=== PATIENT | female | born 2000 | race Caucasian/White ===

== ENCOUNTER 2023-07-15 09:51 | Outpatient (CLI) | payer BC, SELFPAY ==
[2023-07-15 11:07] LABS: HIV 1/2 Ab P24 Ag Result Negative (Negative)
[2023-07-15 11:51] LABS: Hepatitis B Surface Antigen Negative (Negative)
[2023-07-15 12:01] LABS: Hepatitis B Core IgM Result Negative (Negative)
[2023-07-15 12:08] LABS: Hepatitis C Virus Antibody Negative (Negative)
[2023-07-15 12:49] LABS: HAV RESULT Negative (Negative)
[2023-07-16 12:00] LABS: Rapid Plasma Reagin Non-Reactive (NonReactive)
== END 2023-07-15 09:52 | disposition home or self-care (01) ==
LOC: ANHLAB 09:54
PROVIDERS: Visit Provider Student in an Organized Health Care Education/Training Program
DX: Z11.3 Encounter for screening for infections with a predominantly sexual mode of transmission (principal)
CPT/HCPCS: 36415; 80074; 86592; 86695; 86696; 86703; G0432